=== PATIENT | male | born 1945 | race Caucasian/White ===

== ENCOUNTER 2023-10-17 13:40 | Outpatient (CLI) | payer MEDICARE, OTHER | END 2023-10-17 13:41 | disposition EMS.NT | LOC: EMS 13:40 | DX: S00.01XA Abrasion of scalp, initial encounter (principal); W10.8XXA Fall (on) (from) other stairs and steps, initial encounter; Y92.008 Other place in unspecified non-institutional (private) residence as the place of occurrence of the external cause ==

== ENCOUNTER 2023-10-17 14:26 | Emergency (ER) | payer MEDICARE, OTHER ==
--- NOTE | 2023-10-17 16:16 | ED Physician Documentation ---
History of Present Illness - Stated complaint Stated Complaint: FALL DOWN STAIRS,HEAD INJ - Chief complaint Chief Complaint: Trauma Hd/Nk - History obtained from History obtained from: Patient, Family - History of Present Illness Timing: Today Pain level max: 0 Pain level now: 0 - Additonal information Additional information: Patient is an 78-year-old male who presents to the emergency department after a fall down 19 steps outside landing on a concrete pad below. He states he is not on blood thinners. Does not have any head, neck, back pain. No loss of consciousness. Has large abrasions to the top of the head. Last tetanus shot was 2 years ago. No focal neurological deficits. No seizure activities. Here with his . Review of Systems Constitutional: denies: Fever, Chills GI: denies: Vomiting, Diarrhea Skin: denies: Rash Musculoskeletal: denies: Neck pain, Back pain Neurologic: denies: Focal weakness, Numbness, Confused PD PAST MEDICAL HISTORY - Past Medical History Cardiovascular: Atrial fibrillation Respiratory: Pneumonia GI: Other : Kidney stones - Past Surgical History Past Surgical History: Yes General: Bowel surgery - Present Medications Home Medications: Ambulatory Orders Medication Instructions Recorded Confirmed Amoxicillin/Potassium Clav 125 mg PO 05/15/15 05/15/15 [Augmentin 500-125 Tablet] Aspirin Chewable [[facility] 05/15/15 05/15/15 Aspirin] Ibuprofen PRN 05/15/15 05/15/15 Oxycodone HCl/Acetaminophen 1 tab PO PRN 05/15/15 05/15/15 [Percocet 5-325 mg Tablet] - Allergies Allergies/Adverse Reactions: Allergies Allergy/AdvReac Type Severity Reaction Status Date / Time No Known Drug Allergies Allergy Verified 10/17/23 14:42 - Social History Does the pt smoke?: No Smoking Status: Never smoker Does the pt drink ETOH?: No PD ED PE NORMAL - Vitals Vital signs reviewed: Yes - General General: Alert and oriented X 3, No acute distress - HEENT HEENT: PERRL, Moist mucous membranes, Other (Large abrasion to the top of the head. 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, No motor deficit, No sensory deficit, Normal speech Eye Opening: Spontaneous Motor: Obeys Commands Verbal: Oriented GCS Score: 15 - Psych Psych: Normal mood, Normal affect Results - Vitals Vitals: Vital Signs - 24 hr 10/17/23 10/17/23 14:39 17:10 Temperature 36.8 C Heart Rate 68 69 Respiratory 16 18 Rate Blood Pressure 194/70 H 160/74 H O2 Saturation 96 97 Oxygen O2 Source Room air - Rads (name of study) ct head Relevant Findings:: Final report received, See rad report ct cspine Relevant Findings:: Final report received, See rad report PD Medical Decision Making - ED course Complexity details: reviewed results, re-evaluated patient, considered differential, d/w patient ED course: The abrasion was cleansed and bandaged. Tetanus up-to-date. Negative head CT. Negative cervical spine CT. GCS 15. Ambulating without difficulty. No other injuries. Moving all major joints without any pain. Head injury instructions given at bedside. Wound care instructions given at bedside. Patient counseled regarding signs and symptoms for which I believe and urgent re-evaluation would be necessary. Patient with good understanding of and agreement to plan and is comfortable going home at this time This document was made in part using voice recognition software. While efforts are made to proofread this document, sound alike and grammatical errors may occur. Departure - Departure Disposition: 01 Home, Self Care Clinical Impression: Closed head injury Qualifiers: Encounter type: initial encounter Qualified Code(s): S09.90XA - Unspecified injury of head, initial encounter Scalp abrasion Qualifiers: Encounter type: initial encounter Qualified Code(s): S00.01XA - Abrasion of scalp, initial encounter Condition: Good Instructions: ED Head Injury Closed Follow-Up: your,doctor in 1 week for wound check [Other] Comments: Your head CT and cervical spine CT do not show any acute abnormalities. Please follow-up with your doctor for further care. Your CT readings are below. Keep the wound clean. Return if you notice redness, swelling or drainage from the wound. EXAM: [id number] CT/HEADWO ([id number]) PROCEDURE: Head WO INDICATIONS: fall, pain TECHNIQUE: Noncontrast 4.5 mm thick angled axial sections acquired from the foramen magnum to the vertex. For radiation dose reduction, the following was used: automated exposure control, adjustment of mA and/or kV according to patient size. COMPARISON: 05/15/2015 FINDINGS: Image quality: Diagnostic CSF spaces: Basal cisterns are patent. Lateral ventricles are symmetric. Volume: Vascular calcifications. Periventricular white matter disease is commonly seen with chronic microangiopathy. Volume loss is present. These findings are moderate. This is slightly increased from 2015. Brain: No intracranial hemorrhage. Clark-white differentiation is grossly maintained. Craniofacial structures: Paranasal sinuses with mild mucosal thickening. IMPRESSION: No acute intracranial abnormality. EXAM: [id number] CT/CSPWO ([id number]) PROCEDURE: Cervical Spine WO INDICATIONS: fall, pain TECHNIQUE: Noncontrast 3 mm thick sections acquired from the skull base to the T4 level. Sagittal and coronal reformats were then constructed. For radiation dose reduction, the following was used: automated exposure control, adjustment of mA and/or kV according to patient size. COMPARISON: None. FINDINGS: Image quality: Diagnostic Bones: Moderate degenerative changes. Vertebral body heights are well- maintained. No traumatic subluxation. Soft tissues: There are vascular calcifications. No pathologic prevertebral soft tissue swelling. Possible right apex. Calcified pleural plaque. Partially seen prominent mediastinal lymph nodes are present. IMPRESSION: Moderate degenerative changes. No acute fractures or subluxation. If there is high concern for further derangement, consider MRI evaluation. Partially seen indeterminate prominent mediastinal lymph nodes. Forms: PCP List Discharge Date/Time: 10/17/23 17:10
[2023-10-17] MEDS: BACITRACIN ZINC OINT 1 PACKET TOP STA (16:19)
--- NOTE | 2023-10-17 16:43 | CT Report ---
PROCEDURE: Head WO INDICATIONS: fall, pain TECHNIQUE: Noncontrast 4.5 mm thick angled axial sections acquired from the foramen magnum to the vertex. For r adiation dose reduction, the following was used: automated exposure control, adjustment of mA and/or kV according to patient size. COMPARISON: 05/15/2015 FINDINGS: Image quality: Diagnostic CSF spaces: Basal cisterns are patent. Lateral ventricles are symmetric. Volume: Vascular calcifications. Periventricular white matter disease is commonly seen with chronic m icroangiopathy. Volume loss is present. These findings are moderate. This is slightly increased from 2015. Brain: No intracranial hemorrhage. Clark-white differentiation is grossly maintained. Craniofacial structures: Paranasal sinuses with mild mucosal thickening. IMPRESSION: No acute intracranial abnormality. Reviewed by: Vijay Fernandez MD on 10/17/2023 4:41 PM PST Approved by: Vijay Fernandez MD on 10/17/2023 4:41 PM PST Station ID: [id number]
--- NOTE | 2023-10-17 16:46 | CT Report ---
PROCEDURE: Cervical Spine WO INDICATIONS: fall, pain TECHNIQUE: Noncontrast 3 mm thick sections acquired from the skull base to the T4 level. Sagittal and coronal r eformats were then constructed. For radiation dose reduction, the following was used: automated exp osure control, adjustment of mA and/or kV according to patient size. COMPARISON: None. FINDINGS: Image quality: Diagnostic Bones: Moderate degenerative changes. Vertebral body heights are well-maintained. No traumatic sublux ation. Soft tissues: There are vascular calcifications. No pathologic prevertebral soft tissue swelling. Pos sible right apex. Calcified pleural plaque. Partially seen prominent mediastinal lymph nodes are present. IMPRESSION: Moderate degenerative changes. No acute fractures or subluxation. If there is high concern for furthe r derangement, consider MRI evaluation. Partially seen indeterminate prominent mediastinal lymph nodes. Reviewed by: Vijay Fernandez MD on 10/17/2023 4:45 PM PST Approved by: Vijay Fernandez MD on 10/17/2023 4:45 PM PST Station ID: [id number]
[2023-10-17 17:18] VITALS: BP 160/74; O2SAT 97
== END 2023-10-17 17:10 | disposition home or self-care (01) ==
LOC: ED 14:26
DX: S00.01XA Abrasion of scalp, initial encounter (principal); S09.90XA Unspecified injury of head, initial encounter; W10.9XXA Fall (on) (from) unspecified stairs and steps, initial encounter
CPT/HCPCS: 99283; 99284